=== PATIENT | female | born 1995 | race Caucasian/White ===

== ENCOUNTER → 2017-05-20 | Outpatient (CLI) | payer OTHER ==
[2017-05-21 08:37] LABS: CHOLESTEROL 214.24 mg/dL (0-200); Direct HDL 66 mg/dL (>40); TRIGLYCERIDES 87 mg/dL (<150)
[2017-05-21 08:47] LABS: DIRECT LDL 130 mg/dL (<100)
== END ==
LOC: OD 17:49
PROVIDERS: ATTEND Internal Medicine
DX: Z00.00 Encounter for general adult medical examination without abnormal findings (principal)
CPT/HCPCS: 36415; 80061; 84443